=== PATIENT | female | born 2000 | race Caucasian/White ===

== ENCOUNTER 2021-02-25 12:37 | Emergency (ER) | payer OTHER ==
[2021-02-25 14:05] LABS: HEMOGLOBIN 11.9 gm/dl (12.3-15.3); RED BLOOD COUNT 4.78 M/UL (4.00-5.10); WHITE BLOOD COUNT 6.8 K/UL (4.5-11.0)
[2021-02-25 14:27] LABS: BUN/CREATININE RATIO 18 (0-10)
[2021-02-25] MEDS ORDERED: BACTRIM DS TAB1 EACH PO (16:24)
[2021-02-25] MEDS ORDERED: ZOFRAN4 MG PO (16:24)
== END 2021-02-25 16:35 | disposition home or self-care (01) ==
LOC: ER1 12:37
PROVIDERS: Physician Assistant Medical
DX: N39.0 Urinary tract infection, site not specified (principal); D64.9 Anemia, unspecified; Z88.0 Allergy status to penicillin; Z88.8 Allergy status to other drugs, medicaments and biological substances
CPT/HCPCS: 71045; 80053; 81001; 84484; 84703; 85025; 87077; 87086; 87186; 99284